=== PATIENT | female | born 1975 | race Two or more races ===

== ENCOUNTER 2016-07-08 18:37 | Emergency (ER) | payer MEDICAID ==
[~2016-07-08] VITALS: Ht 160 cm; Wt 97.6 kg
[~2016-07-08 18:37] MED LIST: IBUP-1542 PO; PNV1TABL43 PO
[2016-07-08 18:45] VITALS: Ht 160 cm; Wt 97.6 kg
[2016-07-08] MEDS ORDERED: PRED20TA PO (19:17)
[2016-07-08] MEDS ORDERED: ALBU18HF INHALATION (19:17)
[2016-07-08] MEDS ORDERED: AZIT250T94 PO (19:17)
--- NOTE | 2016-07-08 19:19 | ERD ---
ER Documentation Chief Complaint Date/Time DATE: 07/08/16 TIME: 19:18 Chief Complaint cough x 2 weeks HPI This 41-year-old female presents with cough and possible wheeze for last 2 weeks. She has productive sputum production is measured fevers although she feels warm sometimes with chills. She denies vomiting, abdominal pain, chest pain, neck stiffness, rashes. ROS All systems reviewed and are negative except as per history of present illness. Medications Home Meds Active Scripts Albuterol Sulfate* (Ventolin HFA*) 18 Gm Hfa.aer.ad, 2 PUFF INHALATION Q4H, #1 INHALER Prov:JEWELS SIMON MD 07/08/16 Prednisone* (Prednisone*) 20 Mg Tab, 40 MG PO DAILY for 5 Days, TAB Prov:JEWELS SIMON MD 07/08/16 Azithromycin* (Zithromax*) 250 Mg Tablet, 250 MG PO .ZPACK DIRECTED, #6 TAB TAKE 500 MG (2 TABS) THE FIRST DAY THEN 250 MG (1 TAB) DAYS 2-5 Prov:JEWELS SIMON MD 07/08/16 Ibuprofen* (Motrin*) 600 Mg Tab, 600 MG PO Q6, #20 TAB 0 Refills Prov:KANE LOAIZA MD 11/02/14 Reported Medications Vit/Fe Fumarate/Fa* ( Vitamin Tablet*) 1 Tab Tablet, 1 TAB PO DAILY, TAB 10/31/14 Allergies Allergies: Coded Allergies: No Known Allergies (Unverified Allergy, Unknown, 10/31/14) Physical Exam Vitals Vital Signs Date Time Temp Pulse Resp B/P Pulse Ox O2 Delivery O2 Flow Rate FiO2 07/08/16 18:45 98.9 87 20 152/80 98 Physical Exam Const: [] Alert, ydw-xan-pcppmbboc per Head: Atraumatic Eyes: Normal Conjunctiva ENT: Normal External Ears, Nose and Mouth. TMs normal and oropharynx normal. Neck: Full range of motion..~ No meningismus. Resp: Clear to auscultation bilaterally. Slight wheezy cough without rales or retractions appreciated Cardio: Regular rate and rhythm, no murmurs Abd: Soft, non tender, non distended. Normal bowel sounds Skin: No petechiae or rashes Back: No midline or flank tenderness Ext: No cyanosis, or edema Neur: Awake and alert Psych: Normal Mood and Affect Procedures/MDM Patient presents with URI symptoms of productive cough without signs or symptoms of hypoxemia, pneumonia, respiratory distress. She will treated with a short course of Ventolin, prednisone and Zithromax. The patient was stable with no new complaints during the ER course. Clinically, there is no current evidence to suggest meningitis, sepsis, acute abdomen, pneumonia, acute coronary syndrome, pulmonary embolism, or any other emergent condition appearing to require further evaluation or hospitalization. The patient should certainly return for any new or worsening symptoms per the aftercare instructions. They should otherwise follow-up with her primary care doctor for reevaluation this week. Departure Diagnosis: Primary Impression: Bronchitis Condition: Stable Patient Instructions: Bronchitis With Wheezing (Adult) Additional Instructions: Recheck for new or worsening symptoms or primary care doctor. JEWELS SIMON MD Jul 08, 2016 19:19
== END 2016-07-08 19:25 | disposition home or self-care (01) ==
LOC: FTE 18:37
DX: J20.9 Acute bronchitis, unspecified (principal); F17.210 Nicotine dependence, cigarettes, uncomplicated
CPT/HCPCS: 99284

== ENCOUNTER 2017-04-29 15:33 | Emergency (ER) | END 2017-04-29 17:52 | disposition home or self-care (01) ==

== ENCOUNTER 2018-05-10 19:32 | Emergency (ER) | payer MEDICAID ==
[~2018-05-10] VITALS: Ht 170.2 cm; Wt 103.3 kg
[~2018-05-10 19:32] MED LIST changes: +ACET500C5 PO; +ALBU18HF INHALATION; +AZIT250T PO; +CETI10CA PO; +GUAI120S26 PO; +PRED20TA PO
[2018-05-10 19:37] VITALS: Ht 170.2 cm; Wt 103.3 kg
--- NOTE | 2018-05-10 22:15 | ERD ---
ER Documentation Chief Complaint Chief Complaint C/O COUGH, BODY ACHES AND PALOMINO X1 WEEK HPI 43-year-old female presents here to emergency department for complaints of cough body aches headaches for 1 week, cough with whitish phlegm, has been taking gvvz-jno-qxcoava NyQuil and DayQuil with mild relief. Patient does not have any sick contacts. Patient denies any recent travel. Patient also has been having runny nose nasal congestion. ROS All systems reviewed and are negative except as per history of present illness. Medications Home Meds Active Scripts Cetirizine Hcl* (Zyrtec*) 10 Mg Capsule, 10 MG PO DAILY, #10 TAB.CHEW Prov:NIKKI NGUYEN PA-C 04/29/17 Acetaminophen* (Tylophen*) 500 Mg Capsule, 1 CAP PO Q6H PRN for PAIN AND OR ELEVATED TEMP, #20 CAP Prov:NIKKI NGUYEN PA-C 04/29/17 Zujqrznafjg-F-Axvetibijz Hb* (Guaifenesin* DM Syrup) 120 Ml Syrup, 10 ML PO Q4H PRN for COUGH, #120 ML Prov:NIKKI NGUYEN PA-C 04/29/17 Albuterol Sulfate* (Ventolin HFA*) 18 Gm Hfa.aer.ad, 2 PUFF INHALATION Q4H, #1 INHALER Prov:JEWELS SIMON MD 07/08/16 Prednisone* (Prednisone*) 20 Mg Tab, 40 MG PO DAILY for 5 Days, TAB Prov:JEWELS SIMON MD 07/08/16 Azithromycin* (Zithromax*) 250 Mg Tablet, 250 MG PO .[place]PACK DIRECTED, #6 TAB TAKE 500 MG (2 TABS) THE FIRST DAY THEN 250 MG (1 TAB) DAYS 2-5 Prov:JEWELS SIMON MD 07/08/16 Ibuprofen* (Motrin*) 600 Mg Tab, 600 MG PO Q6, #20 TAB 0 Refills Prov:KANE LOAIZA MD 11/02/14 Reported Medications Vit/Fe Fumarate/Fa* ( Vitamin Tablet*) 1 Tab Tablet, 1 TAB PO DAILY, TAB 10/31/14 Allergies Allergies: Coded Allergies: No Known Allergies (Unverified Allergy, Unknown, 10/31/14) PMhx/Soc Medical and Surgical Hx: pt denies Medical Hx, pt denies Surgical Hx History of Surgery: No Hx Neurological Disorder: No Hx Respiratory Disorders: No Hx Cardiac Disorders: No Hx Psychiatric Problems: No Hx Miscellaneous Medical Probl: No Hx Alcohol Use: Yes Hx Substance Use: No Hx Tobacco Use: Yes Smoking Status: Current every day smoker FmHx Family History: No diabetes, No coronary disease, No other Physical Exam Vitals Vital Signs Date Temp Pulse Resp B/P (MAP) Pulse Ox O2 O2 Flow FiO2 Time Delivery Rate 05/10/18 100.5 98 19 144/81 97 19:37 (102) Physical Exam GENERAL: The patient is well developed and appropriate for usual state of health, in no apparent distress. CHEST: Clear to auscultation bilaterally. There are no rales, wheezes or rhonchi. HEART: Regular rate and rhythm. No murmurs, clicks, rubs or gallops. No S3 or S4. ABDOMEN: Soft, nontender and nondistended. Good bowel sounds. No rebound or guarding. No gross peritonitis. No gross organomegaly or masses. No Zarate sign or McBurney point tenderness. BACK: No midline or flank tenderness. EXTREMITIES: Equal pulses bilaterally. There is no peripheral clubbing, cyanosis or edema. No focal swelling or erythema. Full range of motion. Grossly neurovascularly intact. NEURO: Alert and oriented. Cranial nerves 2-12 intact. Motor strength in all 4 extremities with 5/5 strength. Sensation grossly intact. Normal speech and gait. SKIN: There is no apparent rash or petechia. The skin is warm and dry. HEMATOLOGIC AND LYMPHATIC: There is no evidence of excessive bruising or lymphedema. No gross cervical, axillary, or inguinal lymphadenopathy. Results 24 hrs Current Medications Medications Dose Sig/Basilio Start Time Status Last (Trade) Ordered Route PRN Stop Time Admin Dose Reason Admin Ibuprofen 600 mg ONCE ONCE 05/10/18 (Motrin) PO 22:30 05/10/18 22:31 650 mg ONCE ONCE 05/10/18 Acetaminophen PO 22:30 (Tylenol 05/10/18 22:31 Tab) Patient was given medicines for fever control here in the emergency department. After treatment, patient temperature improved and lower. Patient appears well and is hemodynamically stable. Procedures/MDM Medical Decision Making: Patient symptoms are most likely consistent with acute bronchitis, which likely atypical. There is low suspicion for Pneumonia at this time since patients lungs sounds are clear, patient O2 saturation is normal and patient doesnt show any respiratory distress. There is low suspicion for other cardiopulmonary emergencies at this time such as CHF, Pulmonary Embolism, Pneumothorax, Aortic Aneurysm or any other cardiopulmonary emergencies at this time. There is low suspicion for sepsis. Patient appears well and is hemodynamically stable. Fever is controlled with medicines. Disposition: Home. Condition: Stable Prescriptions: Zyrtec Tylenol Motrin Tessalon Perles azithromycin Instructions: Patient is advised to take medications as prescribed. Patient is advised to rest. Patient advised to increase fluid intake, do humidifier at home and if possible, do salt water gargles. Patient is advised that if symptoms are worse, shortness of breath, uncontrolled fever, stridor, vomiting, worst signs and symptoms to return to emergency department immediately. Otherwise, patient is advised to follow up with primary doctor in 5-7 days. Disclaimer: Inadvertent spelling and grammatical errors are likely due to EHR/dictation software use and do not reflect on the overall quality of patient care. Also, please note that the electronic time recorded on this note does not necessarily reflect the actual time of the patient encounter. Departure Diagnosis: Primary Impression: Acute bronchitis Bronchitis organism: unspecified organism Qualified Codes: J20.9 - Acute bronchitis, unspecified Condition: Stable Patient Instructions: Bronchitis, Antiobiotic Treatment (Adult) Additional Instructions: : Patient is advised to take medications as prescribed. Patient is advised to rest. Patient advised to increase fluid intake, do humidifier at home and if possible, do salt water gargles. Patient is advised that if symptoms are worse, shortness of breath, uncontrolled fever, stridor, vomiting, worst signs and symptoms to return to emergency department immediately. Otherwise, patient is advised to follow up with primary doctor in 5-7 days. JHONATAN MARQUIS NP May 10, 2018 22:15
[2018-05-10] MEDS ORDERED: BENZ-6 PO (22:16)
[2018-05-10] MEDS ORDERED: ACET500C5 PO (22:16)
[2018-05-10] MEDS ORDERED: AZIT250T PO (22:16)
[2018-05-10] MEDS ORDERED: CETI10CA PO (22:16)
[2018-05-10] MEDS ORDERED: IBUP-1542 PO (22:16)
[2018-05-10 22:27] VITALS: BP 126/82; PULSE 102; RESP 20
[2018-05-10] MEDS ORDERED: IBUPROFEN 600 MG TAB PO ONE (22:30)
[2018-05-10] MEDS ORDERED: ACETAMINOPHEN 325 MG TAB PO ONE (22:30)
== END 2018-05-10 22:28 | disposition home or self-care (01) ==
LOC: FTE 19:32
DX: J20.9 Acute bronchitis, unspecified (principal); F17.210 Nicotine dependence, cigarettes, uncomplicated
CPT/HCPCS: Z7502; Z7610; 99283